=== PATIENT | female | born 2005 | race Caucasian/White ===

== ENCOUNTER 2023-03-05 14:57 | Inpatient (IN) | payer OTHER, SELFPAY ==
[2023-03-05 14:59] VITALS: BP 101/66; BP 115/70; PULSE 55; PULSE 56; RESP 18; TEMP 36.8; O2SAT 99; BMI 19.8
[2023-03-05 15:46] LABS: UPreg QC Valid YES; Urine Pregnancy NEGATIVE (NEGATIVE)
[2023-03-05 15:48] LABS: Appearance Urine Clear; Color Urine Yellow; Glucose Urine UA Negative (Negative); Leukocyte Esterase Urine Negative (Negative); Nitrite Urine Negative (Negative); Specific Gravity - Urine <= 1.005 (1.005-1.025); UMIC TRIGGER UA YES; Urine Blood Small (1+) (Negative); Urine Ketones Negative (Negative); Urine Protein Negative (Neg-Trace)
[2023-03-05 15:54] LABS: Amphetamine Screen Urine Not Detected (Not Detect); Barbiturates, Urine Not Detected (Not Detect); Benzodiazepines Screen Urine Not Detected (Not Detect); Cannabinoid Screen Urine Not Detected (Not Detect); Cocaine Screen Urine Not Detected (Not Detect); Fentanyl, urine Not Detected (Not Detect); Opiate Screen Urine Not Detected (Not Detect); Phencyclidine Screen Urine Not Detected (Not Detect)
[2023-03-05 15:56] LABS: Bacteria Urine None Seen (None Seen); Hyaline Casts Urine 0-2 /LPF (0-2); RBC Urine 0-2 /HPF (0-2); Squamous Epithelial Cell Urine 0-2 /HPF (0-2); WBC Urine 0-5 /HPF (0-5)
[2023-03-05 16:07] LABS: COVID-19 Test Negative (Negative); IDNOW Serial# 08D9AD1C
--- NOTE | 2023-03-05 16:35 | ED_ITS ---
HPI - General Adult General Chief complaint: Psychiatric Symptoms Stated complaint: sec 12 Time Seen by Provider: 03/05/23 15:51 Source: patient and EMS Mode of arrival: ambulatory Limitations: no limitations History of Present Illness HPI narrative: 17 year old female with PMH of mood disorder not compliant with medications (lithium) presents to the ED after suicide attempt on Wednesday. Patient reports she was at a libertarian at [employer] when she left and found a railroad. She reports she thought that if she touched it, it would electrocute her, so she touched it. Patient reports she has had suicidal thoughts since 2020 but has never attempted in the past and has no current plan. Patient reports she is seen regularly by a psychiatrist and a counselor and feel supported. No V/A/T hallucinations. Patient reports she was under the influence of alcohol on Wednesday but is not currently intoxicated. Denies drug or tobacco use. Denies medical complaints or SI/HI. Reports she is only anxious because she has finals this week. Related Data Home Medications Medication Instructions Recorded Confirmed lithium carbonate 450 mg 450 mg PO BID 03/05/23 03/05/23 tablet,extended release Allergies Allergy/AdvReac Type Severity Reaction Status Date / Time No Known Allergies Allergy Verified 03/05/23 15:16 Review of Systems Review of Systems: Constitutional : No Fever, No Chills ENT/Mouth : No Ear Pain, No Nasal Congestion, No sore throat Eyes: No Eye Pain, No Swelling, No Redness Cardiovascular : No Chest Pain, No SOB Respiratory : No Cough, No Sputum, No Dyspnea Gastrointestinal : No Nausea, No Vomiting, No Diarrhea, No Hematochezia, No Melena Genitourinary : No Dysuria, No Urinary Frequency, No Hematuria Musculoskeletal : No Myalgias Skin : No Skin Lesions, No rash Neuro : No Weakness, No Numbness, No Paresthesias, No Dizziness, No Headache Psych : + Anxiety, + Depression, - SI/HI Heme/Lymph: No Lymphadenopathy Endocrine : No Polyuria, No Polydipsia All other systems reviewed and are negative Yes all other systems are reviewed and are negative [facility] Past Medical History Attestation statement: The following information was validated with the patient. Source: old records reviewed, obtained from family and nursing notes reviewed Social History Social History Advance Directives: No Advance Directives Information Provided: Yes Healthcare Proxy: No Guardian: No Physical Exam ED Vital Signs: Vital Signs - 24 hr 03/05/23 14:59 Temperature 98.3 F Pulse Rate 55 Respiratory Rate 18 Blood Pressure 101/66 Pulse Oximetry 99 Oxygen Delivery Method Room Air BMI result Body Mass Index 19.8 VSS Appearance: Alert.? Oriented X3.? No acute distress.? Head: Normocephalic, atraumatic, no step-offs or deformities Eyes: Pupils equal, round and reactive to light.? CVS: Normal heart rate and rhythm.? Pulses normal.? Respiratory: No respiratory distress.? Breath sounds normal.? Abdomen: Soft and nontender.? Skin: Skin warm and dry.? Normal skin color.? Normal skin turgor.? Extremities: No lower extremity edema.? No calf ttp. 5/5 strength to bilateral upper and lower extremities Neuro: Oriented X 3.? No motor deficit.? No sensory deficit. CN 2-12 intact Course Reevaluation(s) Reevaluation #1: CBC w/ hemoconcentration likey secodary to dehydration. Chemistry unremarkable. UA clean. Salicylate acetaminophen negative. [place] WNL. Ethyl alcohol negative. COVID negative. Patient will be placed in observation to allow more time to be evaluated by care team. Patient calm and cooperative. Time: 21:18 Medical Decision Making Medical Decision Making [facility] Narrative: 170 17 year old female presents after a suicide attempt on Wednesday night. Denies medical complaints or current SI/HI. Physical exam: Alert & Oriented X 3.?No acute distress. No motor deficit.? No sensory deficit. CN 2-12 intact. Denies SI/HI. No V/A/T hallucinations Ddx: Anxiety, Depression, Personality disorder, Bipolar disorder. Unlikely medical problem. Differential Diagnosis Differential Diagnoses: The differential diagnosis associated with the presentation includes Anxiety, Depression, Personality disorder, Bipolar disorder. Unlikely medical problem. Lab Data [facility] Lab Attestation statement: I reviewed the patient's lab results. 03/05/23 18:38 03/05/23 18:38 Labs: Lab Results 03/05/23 03/05/23 03/05/23 Range/Units 15:34 15:34 15:35 WBC (4.8-10.8) X10*3/uL RBC (4.20-5.50) X10*6/uL Hgb (12.0-16.0) g/dl Hct (37.0-47.0) % MCV (80.0-98.0) fL MCH (27.0-33.0) pg MCHC (31.0-35.0) g/dl RDW (11.0-16.0) % Plt Count (160-400) X10*3/uL MPV (9.4-12.3) fL Immature Gran % (Auto) (0.0-0.4) % Neut % (Auto) (45-73) % Lymph % (Auto) (20-40) % [place] % (Auto) (2-11) % Eos % (Auto) (0-4) % Baso % (Auto) (0-2) % Lymph # (Auto) (1.2-4.9) X10*3/uL [place] # (Auto) (0.1-1.2) X10*3/uL Eos # (Auto) (0.0-0.4) X10*3/uL Baso # (Auto) (0.0-0.2) X10*3/uL Abs Immat Gran (auto) (0.00-0.03) X10*3/uL Absolute Neuts (auto) (2.0-8.3) x10*3/uL Absolute Nucleated RBC (0.0-0.012) X10*3/uL Nucleated RBC % (auto) (0.0-0.2) /100WBC Sodium (135-145) mmol/L Potassium (3.3-5.1) mmol/L Chloride (96-108) mmol/L Carbon Dioxide (22-29) mmol/L Anion Gap (12-20) BUN (9-16) mg/dL Creatinine (0.5-1.4) mg/dL Estim Creat Clear Calc Estimated GFR Random Glucose (60-115) mg/dL Calcium (8.4-10.2) mg/dL Magnesium (1.6-2.6) mg/dL Total Bilirubin (0.0-1.0) mg/dL AST (5-31) U/L ALT (0-31) U/L Alkaline Phosphatase (39-117) U/L Total Protein (6.5-8.0) g/dL Albumin (3.5-5.0) g/dL Urine Color Yellow Urine Appearance Clear Urine pH 7.0 (5.0-9.0) Ur Specific [place] <= 1.005 (1.005-1.025) Urine Protein Negative (Neg-Trace) mg/dL Urine Glucose (UA) Negative (Negative) mg/dL Urine Ketones Negative (Negative) mg/dL Urine Blood Small (1+) H (Negative) Urine Nitrite Negative (Negative) Ur Leukocyte Esterase Negative (Negative) Urine RBC 0-2 (0-2) /HPF Urine WBC 0-5 (0-5) /HPF Ur Squamous Epith Cells 0-2 (0-2) /HPF Urine Bacteria None Seen (None Seen) Hyaline Casts 0-2 (0-2) /LPF Urine Test (NEGATIVE) Salicylates (15-30) mg/dL Urine Opiates Screen Not Detected (Not Detect) Urine Fentanyl Screen Not Detected (Not Detect) Acetaminophen (<30) mcg/mL Ur Barbiturates Screen Not Detected (Not Detect) Ur Phencyclidine Scrn Not Detected (Not Detect) Ur Amphetamines Screen Not Detected (Not Detect) U Benzodiazepines Scrn Not Detected (Not Detect) [place] (0.60-1.20) mmol/L Urine Cocaine Screen Not Detected (Not Detect) U Marijuana (THC) Screen Not Detected (Not Detect) Ethyl Alcohol mg/dL COVID-19 (SAMANTHA) Negative (Negative) COVID-19 Clin Com See Note 03/05/23 03/05/23 03/05/23 Range/Units 15:35 18:38 18:38 WBC 9.1 (4.8-10.8) X10*3/uL RBC 5.25 (4.20-5.50) X10*6/uL Hgb 16.1 H (12.0-16.0) g/dl Hct 47.3 H (37.0-47.0) % MCV 90.1 (80.0-98.0) fL MCH 30.7 (27.0-33.0) pg MCHC 34.0 (31.0-35.0) g/dl RDW 12.0 (11.0-16.0) % Plt Count 236 (160-400) X10*3/uL MPV 10.6 (9.4-12.3) fL Immature Gran % (Auto) 0.3 (0.0-0.4) % Neut % (Auto) 68.5 (45-73) % Lymph % (Auto) 23.7 (20-40) % [place] % (Auto) 6.1 (2-11) % Eos % (Auto) 1.1 (0-4) % Baso % (Auto) 0.3 (0-2) % Lymph # (Auto) 2.2 (1.2-4.9) X10*3/uL [place] # (Auto) 0.6 (0.1-1.2) X10*3/uL Eos # (Auto) 0.1 (0.0-0.4) X10*3/uL Baso # (Auto) 0.0 (0.0-0.2) X10*3/uL Abs Immat Gran (auto) 0.03 (0.00-0.03) X10*3/uL Absolute Neuts (auto) 6.2 (2.0-8.3) x10*3/uL Absolute Nucleated RBC 0.000 (0.0-0.012) X10*3/uL Nucleated RBC % (auto) 0.0 (0.0-0.2) /100WBC Sodium 139 (135-145) mmol/L Potassium 4.5 (3.3-5.1) mmol/L Chloride 105 (96-108) mmol/L Carbon Dioxide 26 (22-29) mmol/L Anion Gap 13 (12-20) BUN 12 (9-16) mg/dL Creatinine 0.92 (0.5-1.4) mg/dL Estim Creat Clear Calc 91.5 Estimated GFR > 60 Random Glucose 143 H (60-115) mg/dL Calcium 10.4 H (8.4-10.2) mg/dL Magnesium 2.3 (1.6-2.6) mg/dL Total Bilirubin 0.9 (0.0-1.0) mg/dL AST 22 (5-31) U/L ALT 17 (0-31) U/L Alkaline Phosphatase 75 (39-117) U/L Total Protein 8.2 H (6.5-8.0) g/dL Albumin 5.2 H (3.5-5.0) g/dL Urine Color Urine Appearance Urine pH (5.0-9.0) Ur Specific [place] (1.005-1.025) Urine Protein (Neg-Trace) mg/dL Urine Glucose (UA) (Negative) mg/dL Urine Ketones (Negative) mg/dL Urine Blood (Negative) Urine Nitrite (Negative) Ur Leukocyte Esterase (Negative) Urine RBC (0-2) /HPF Urine WBC (0-5) /HPF Ur Squamous Epith Cells (0-2) /HPF Urine Bacteria (None Seen) Hyaline Casts (0-2) /LPF Urine Test NEGATIVE (NEGATIVE) Salicylates < 5.0 L (15-30) mg/dL Urine Opiates Screen (Not Detect) Urine Fentanyl Screen (Not Detect) Acetaminophen < 17 (<30) mcg/mL Ur Barbiturates Screen (Not Detect) Ur Phencyclidine Scrn (Not Detect) Ur Amphetamines Screen (Not Detect) U Benzodiazepines Scrn (Not Detect) [place] (0.60-1.20) mmol/L Urine Cocaine Screen (Not Detect) U Marijuana (THC) Screen (Not Detect) Ethyl Alcohol < 10 mg/dL COVID-19 (SAMANTHA) (Negative) COVID-19 Clin Com 03/05/23 Range/Units 19:41 WBC (4.8-10.8) X10*3/uL RBC (4.20-5.50) X10*6/uL Hgb (12.0-16.0) g/dl Hct (37.0-47.0) % MCV (80.0-98.0) fL MCH (27.0-33.0) pg MCHC (31.0-35.0) g/dl RDW (11.0-16.0) % Plt Count (160-400) X10*3/uL MPV (9.4-12.3) fL Immature Gran % (Auto) (0.0-0.4) % Neut % (Auto) (45-73) % Lymph % (Auto) (20-40) % [place] % (Auto) (2-11) % Eos % (Auto) (0-4) % Baso % (Auto) (0-2) % Lymph # (Auto) (1.2-4.9) X10*3/uL [place] # (Auto) (0.1-1.2) X10*3/uL Eos # (Auto) (0.0-0.4) X10*3/uL Baso # (Auto) (0.0-0.2) X10*3/uL Abs Immat Gran (auto) (0.00-0.03) X10*3/uL Absolute Neuts (auto) (2.0-8.3) x10*3/uL Absolute Nucleated RBC (0.0-0.012) X10*3/uL Nucleated RBC % (auto) (0.0-0.2) /100WBC Sodium (135-145) mmol/L Potassium (3.3-5.1) mmol/L Chloride (96-108) mmol/L Carbon Dioxide (22-29) mmol/L Anion Gap (12-20) BUN (9-16) mg/dL Creatinine (0.5-1.4) mg/dL Estim Creat Clear Calc Estimated GFR Random Glucose (60-115) mg/dL Calcium (8.4-10.2) mg/dL Magnesium (1.6-2.6) mg/dL Total Bilirubin (0.0-1.0) mg/dL AST (5-31) U/L ALT (0-31) U/L Alkaline Phosphatase (39-117) U/L Total Protein (6.5-8.0) g/dL Albumin (3.5-5.0) g/dL Urine Color Urine Appearance Urine pH (5.0-9.0) Ur Specific [place] (1.005-1.025) Urine Protein (Neg-Trace) mg/dL Urine Glucose (UA) (Negative) mg/dL Urine Ketones (Negative) mg/dL Urine Blood (Negative) Urine Nitrite (Negative) Ur Leukocyte Esterase (Negative) Urine RBC (0-2) /HPF Urine WBC (0-5) /HPF Ur Squamous Epith Cells (0-2) /HPF Urine Bacteria (None Seen) Hyaline Casts (0-2) /LPF Urine Test (NEGATIVE) Salicylates (15-30) mg/dL Urine Opiates Screen (Not Detect) Urine Fentanyl Screen (Not Detect) Acetaminophen (<30) mcg/mL Ur Barbiturates Screen (Not Detect) Ur Phencyclidine Scrn (Not Detect) Ur Amphetamines Screen (Not Detect) U Benzodiazepines Scrn (Not Detect) [place] 0.98 (0.60-1.20) mmol/L Urine Cocaine Screen (Not Detect) U Marijuana (THC) Screen (Not Detect) Ethyl Alcohol mg/dL COVID-19 (SAMANTHA) (Negative) COVID-19 Clin Com Core Measures AMI core measures followed: Yes Measure exclusions: not indicated Critical Care Time Critical Care Time Critical Care Time: No Discharge Plan Discharge Clinical Impression: Depression Patient Disposition: Still a Patient Prescriptions: No Action lithium carbonate 450 mg tablet extended release 450 mg PO BID
--- NOTE | 2023-03-05 16:46 | MHC.CARE ---
The on-call clinician for this pt at [facility] is going to be Garima and she can be reached on her personal cell phone [phone]. The [facility] would like an update and they are available for more information if it is needed. [facility] rep stated to t/w that the pt had an attmept on Wednesday of this week.
[2023-03-05 18:44] LABS: MANUAL DIFF FLAG NO
[2023-03-05 18:45] LABS: Basophils Percent Auto 0.3 % (0-2); Eosinophils Absolute Auto 0.1 X10*3/uL (0.0-0.4); Eosinophils Percent Auto 1.1 % (0-4); Hematocrit 47.3 % (37.0-47.0); Hemoglobin 16.1 g/dl (12.0-16.0); Imm Gran Abs Auto 0.03 X10*3/uL (0.00-0.03); Imm Gran Pct Auto 0.3 % (0.0-0.4); Lymphocytes Absolute Auto 2.2 X10*3/uL (1.2-4.9); Lymphocytes Percent Auto 23.7 % (20-40); Mean Corpuscular Hemoglobin 30.7 pg (27.0-33.0); Mean Corpuscular Volume 90.1 fL (80.0-98.0); Mean Platelet Volume 10.6 fL (9.4-12.3); Monocytes Absolute Auto 0.6 X10*3/uL (0.1-1.2); Monocytes Percent Auto 6.1 % (2-11); Neutrophils Absolute Auto 6.2 x10*3/uL (2.0-8.3); Neutrophils Percent Auto 68.5 % (45-73); Platelet Count 236 X10*3/uL (160-400); Red Blood Count 5.25 X10*6/uL (4.20-5.50); White Blood Count 9.1 X10*3/uL (4.8-10.8)
[2023-03-05 19:04] LABS: Anion Gap 13 (12-20)
[2023-03-05 19:05] LABS: Acetaminophen LAB < 17 mcg/mL (<30); Alanine Aminotransferase 17 U/L (0-31); Albumin Level 5.2 g/dL (3.5-5.0); Alkaline Phosphatase 75 U/L (39-117); Aspartate Amino Transferase 22 U/L (5-31); Bilirubin Total 0.9 mg/dL (0.0-1.0); Blood Urea Nitrogen 12 mg/dL (9-16); Calcium 10.4 mg/dL (8.4-10.2); Carbon Dioxide 26 mmol/L (22-29); Chloride 105 mmol/L (96-108); Creatinine Clr Calc Pharmacy 91.5; Estimated Glomerular Filt Rate > 60; Ethanol < 10 mg/dL; Glucose Random 143 mg/dL (60-115); Magnesium 2.3 mg/dL (1.6-2.6); Potassium 4.5 mmol/L (3.3-5.1); Salicylate < 5.0 mg/dL (15-30); Sodium 139 mmol/L (135-145); Total Protein 8.2 g/dL (6.5-8.0)
[2023-03-05 20:03] LABS: Lithium 0.98 mmol/L (0.60-1.20)
--- NOTE | 2023-03-05 23:37 | PC.ADMIT ---
pt is a 17 year old female who present to [facility] ED after a suicide attempt last week. pt reported feeling stressed due to finals. during admission, pt was pleasant and signed all legals. pt reported having a cough from a viral infection that didn't completely go away. pt is COVID negative. pt has been drinking water. pt reports that she wants to get back to school and finish her finals,which are on wednesday and wednesday on next week. pt wants to leave on wednesday. start treatment plan and promote safety.
[2023-03-05 23:48] VITALS: BP 118/54; PULSE 60; TEMP 36.8; O2SAT 97
[2023-03-06 08:32] VITALS: BP 102/52; PULSE 56; RESP 16; TEMP 36.9; O2SAT 99
[2023-03-06 08:38] LABS: Estimated Average Glucose 94 mg/dL; Hemoglobin A1c % 4.9 %
[2023-03-06] MEDS: Lithium Carbonate ER 450 MG TABLET.ER PO ×2 (08:46→20:15)
[2023-03-06 08:48] LABS: Alanine Aminotransferase 13 U/L (0-31); Albumin Level 4.4 g/dL (3.5-5.0); Alkaline Phosphatase 63 U/L (39-117); Anion Gap 9 (12-20); Aspartate Amino Transferase 19 U/L (5-31); Bilirubin Total 0.9 mg/dL (0.0-1.0); Blood Urea Nitrogen 13 mg/dL (9-16); Calcium 9.8 mg/dL (8.4-10.2); Carbon Dioxide 25 mmol/L (22-29); Chloride 108 mmol/L (96-108); Cholesterol 173 mg/dL; Creatinine Clr Calc Pharmacy 84.2; Estimated Glomerular Filt Rate > 60; Glucose Fasting 90 mg/dL (60-99); HDL Cholesterol 70 mg/dL; LDL Cholesterol Calculated 89 mg/dl; Potassium 4.3 mmol/L (3.3-5.1); Sodium 138 mmol/L (135-145); Total Protein 6.9 g/dL (6.5-8.0); Triglycerides 70 mg/dL
[2023-03-06 09:17] LABS: Folate 14.9 ng/mL (> or = 4.0); Thyroid Stimulating Hormone 1.33 uIU/mL (0.32-4.0); Vitamin B12 590 pg/mL (200-900)
--- NOTE | 2023-03-06 11:44 | HO.PSYADMNOT ---
HPI Date of Service: 03/06/23 Chief Complaint: SI Sources of Information: patient interviewed, chart reviewed and crisis/core team assessment reviewed HPI Subjective Notes: Conditional Voluntary Healthcare Proxy: No Medical Problems Affecting Mental Status: No Narrative: 17 year old single female, student at [employer]. This is her first psychiatric hospitalization. She carries a diagnosis of depression. Patient was referred to [facility] after she disclosed to friends she tried to get electrocuted by touching the railroad tracks. She says they had a couple of meetings at the [facility] and decided that I should come to the hospital. Patient says I was at a alliance party on Wednesday and had a panic attack because I couldn't have fun like the people at the alliance party and was uncertain about my future and I left. The school is next to the railroad track and I touched the railroads to be electrocuted. But you can't unless there is a third rail. She says she told her friends about the incident. She reports she has been stressed because of finals. She was guarded about other precipitants. She acknowledges she has been off her [place] which she was prescribed after having several failed antidepressant trials and that it was helpful. Li prescribed by [facility] psychiatrist Dr. Agrawal. Patient was focused on leaving and was tearful throughout the interview and was difficult to engage around other topics and was just repeating that she doesn't belong here and wants to leave. She has been taking her Li now. She is denying SI. Past Psychiatric History: First psychiatric hospitalization. Denies suicide attempts Therapist, Bonny Nathan in [place] since 2020. [address]. Agrawal, [facility] psychiatrist. Medical Evaluation Reviewed: Yes [facility] Family History: Bipolar disorder in father. Social History: Originally from [facility]. Substance History: Denies Trauma History: Unknown Diagnostics Vital Signs (24Hr): Vital Signs - 24 hr 03/05/23 14:59 03/05/23 23:48 03/06/23 08:32 Temperature 98.3 F 98.2 F 98.5 F Pulse Rate 55 60 56 Respiratory Rate 18 16 Blood Pressure 101/66 118/54 L 102/52 L Pulse Oximetry 99 97 99 Oxygen Delivery Method Room Air Room Air Room Air BMI result Body Mass Index 19.8 Labs 03/05/23 18:38 03/06/23 08:18 Labs: Laboratory Results - last 48 hr 03/05/23 03/05/23 03/05/23 15:34 15:34 15:35 WBC RBC Hgb Hct MCV MCH MCHC RDW Plt Count MPV Immature Gran % (Auto) Neut % (Auto) Lymph % (Auto) [place] % (Auto) Eos % (Auto) Baso % (Auto) Lymph # (Auto) [place] # (Auto) Eos # (Auto) Baso # (Auto) Abs Immat Gran (auto) Absolute Neuts (auto) Absolute Nucleated RBC Nucleated RBC % (auto) Sodium Potassium Chloride Carbon Dioxide Anion Gap BUN Creatinine Estim Creat Clear Calc Estimated GFR Random Glucose Fasting Glucose Estimat Average Glucose Hemoglobin A1c % Calcium Magnesium Total Bilirubin AST ALT Alkaline Phosphatase Total Protein Albumin Triglycerides Cholesterol LDL Cholesterol, Calc HDL Cholesterol Vitamin B12 Folate TSH Urine Color Yellow Urine Appearance Clear Urine pH 7.0 Ur Specific [place] <= 1.005 Urine Protein Negative Urine Glucose (UA) Negative Urine Ketones Negative Urine Blood Small (1+) H Urine Nitrite Negative Ur Leukocyte Esterase Negative Urine RBC 0-2 Urine WBC 0-5 Ur Squamous Epith Cells 0-2 Urine Bacteria None Seen Hyaline Casts 0-2 Urine Test Salicylates Urine Opiates Screen Not Detected Urine Fentanyl Screen Not Detected Acetaminophen Ur Barbiturates Screen Not Detected Ur Phencyclidine Scrn Not Detected Ur Amphetamines Screen Not Detected U Benzodiazepines Scrn Not Detected [place] Urine Cocaine Screen Not Detected U Marijuana (THC) Screen Not Detected Ethyl Alcohol COVID-19 (SAMANTHA) Negative COVID-19 Clin Com See Note 03/05/23 03/05/23 03/05/23 15:35 18:38 18:38 WBC 9.1 RBC 5.25 Hgb 16.1 H Hct 47.3 H MCV 90.1 MCH 30.7 MCHC 34.0 RDW 12.0 Plt Count 236 MPV 10.6 Immature Gran % (Auto) 0.3 Neut % (Auto) 68.5 Lymph % (Auto) 23.7 [place] % (Auto) 6.1 Eos % (Auto) 1.1 Baso % (Auto) 0.3 Lymph # (Auto) 2.2 [place] # (Auto) 0.6 Eos # (Auto) 0.1 Baso # (Auto) 0.0 Abs Immat Gran (auto) 0.03 Absolute Neuts (auto) 6.2 Absolute Nucleated RBC 0.000 Nucleated RBC % (auto) 0.0 Sodium 139 Potassium 4.5 Chloride 105 Carbon Dioxide 26 Anion Gap 13 BUN 12 Creatinine 0.92 Estim Creat Clear Calc 91.5 Estimated GFR > 60 Random Glucose 143 H Fasting Glucose Estimat Average Glucose Hemoglobin A1c % Calcium 10.4 H Magnesium 2.3 Total Bilirubin 0.9 AST 22 ALT 17 Alkaline Phosphatase 75 Total Protein 8.2 H Albumin 5.2 H Triglycerides Cholesterol LDL Cholesterol, Calc HDL Cholesterol Vitamin B12 Folate TSH Urine Color Urine Appearance Urine pH Ur Specific [place] Urine Protein Urine Glucose (UA) Urine Ketones Urine Blood Urine Nitrite Ur Leukocyte Esterase Urine RBC Urine WBC Ur Squamous Epith Cells Urine Bacteria Hyaline Casts Urine Test NEGATIVE Salicylates < 5.0 L Urine Opiates Screen Urine Fentanyl Screen Acetaminophen < 17 Ur Barbiturates Screen Ur Phencyclidine Scrn Ur Amphetamines Screen U Benzodiazepines Scrn [place] Urine Cocaine Screen U Marijuana (THC) Screen Ethyl Alcohol < 10 COVID-19 (SAMANTHA) COVID-19 [facility] 03/05/23 03/06/23 03/06/23 19:41 08:18 08:18 WBC RBC Hgb Hct MCV MCH MCHC RDW Plt Count MPV Immature Gran % (Auto) Neut % (Auto) Lymph % (Auto) [place] % (Auto) Eos % (Auto) Baso % (Auto) Lymph # (Auto) [place] # (Auto) Eos # (Auto) Baso # (Auto) Abs Immat Gran (auto) Absolute Neuts (auto) Absolute Nucleated RBC Nucleated RBC % (auto) Sodium 138 Potassium 4.3 Chloride 108 Carbon Dioxide 25 Anion Gap 9 L BUN 13 Creatinine 1.00 Estim Creat Clear Calc 84.2 Estimated GFR > 60 Random Glucose Fasting Glucose 90 Estimat Average Glucose 94 Hemoglobin A1c % 4.9 Calcium 9.8 Magnesium Total Bilirubin 0.9 AST 19 ALT 13 Alkaline Phosphatase 63 Total Protein 6.9 Albumin 4.4 Triglycerides 70 Cholesterol 173 LDL Cholesterol, Calc 89 HDL Cholesterol 70 Vitamin B12 590 Folate 14.9 TSH 1.33 Urine Color Urine Appearance Urine pH Ur Specific [place] Urine Protein Urine Glucose (UA) Urine Ketones Urine Blood Urine Nitrite Ur Leukocyte Esterase Urine RBC Urine WBC Ur Squamous Epith Cells Urine Bacteria Hyaline Casts Urine Test Salicylates Urine Opiates Screen Urine Fentanyl Screen Acetaminophen Ur Barbiturates Screen Ur Phencyclidine Scrn Ur Amphetamines Screen U Benzodiazepines Scrn [place] 0.98 Urine Cocaine Screen U Marijuana (THC) Screen Ethyl Alcohol COVID-19 (SAMANTHA) COVID-19 Clin Com Meds/Allergies Meds Home Medications Medication Instructions Recorded Confirmed Type lithium carbonate 450 mg 450 mg PO BID 03/05/23 03/05/23 History tablet,extended release Allergies Allergies Allergy/AdvReac Type Severity Reaction Status Date / Time No Known Allergies Allergy Verified 03/05/23 15:16 Mental Status Exam Mental Status Exam Patient Appearance: Appropriate (Hospital gown) Patient Orientation: Person, Place, Time and Situation Level of Consciousness: Awake, Alert and Follows Commands Patient Behavior: Talkative, Cooperative, Anxious and Crying Mood Description: Anxious, Labile and Nervous Affect Description: Anxious Patient Cognition Impaired: No Ability to Follow Directions: Good Speech Pattern: Perseverating, Spontaneous Speech and Pressured Memory Description: Intact Hallucinations: None Delusions: Not Present Thought Process: Intact and Goal Oriented Thought Content: positive for Intact, positive for [place] and positive for Perseveration Depressive Symptoms: Increased Anxiety, Crying Spells and Unhappiness Judgement: Fair Assessment & Plan Assessment & Plan (1) Depression: Status: Acute Code(s): F32.A - Depression, unspecified Assessment and Plan: 17 yr old [employer] student with reported history of depression who was brought to [facility] after disclosing a suicide attempt by electrocution by touching the railroad track although she wasn't successful and nothing happened after she attempted. She has been off [place]. She was focused on DC throughout the interview and difficult to engage around other topics. Plan Admit to [facility] for safety, further observation, diagnostic clarification and collaterals. CV. Discussed her rights including signing a 3 day notice. Restart Li 450 mg BID (Was on 900 mg total) Encouraged group and milieu therapy. Collaterals from school, family and treatment team. Discharge planning. Patient educated on: medication risk/benefits and therapeutic strategies Informed Consent: understands Reason for continued inpatient stay Substantial Risk for: harm to self and rapid decompensation Statement Statement: I have reviewed the history and physical and performed a pertinent examination on my patient. No changes have occurred unless specified. If the History and Physical was not performed prior to admission, the Hospitalist's service will be consulted for completing the admission physical. Time Spent With Patient Time: Total time managing care of this patient today ____ minutes.
[2023-03-06 16:55] VITALS: BP 117/77; PULSE 89; TEMP 36.6
[2023-03-07] MEDS: Lithium Carbonate ER 450 MG TABLET.ER PO ×2 (08:40→20:23)
[2023-03-07 08:41] VITALS: BP 102/60; PULSE 59; RESP 16; TEMP 36.6; O2SAT 99
--- NOTE | 2023-03-07 10:25 | HO.PSYCHPN ---
Subjective Subjective Date of Service: 03/07/23 Reason For Visit: SI Interim History: Patient seen. Discussed with team. She has been more accepting of staying after having an anxious day yesterday. Continues to take Li. She is cooperative. More engaged. She says she had some visitors yesterdsay and it went well. She is regretful of her her act and says she has no SI anymore. She maintains her act was precipitted because of her not having a clear direction in her life but is vague about it. 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 Denies relationship problems. Has been in touch with her parents she says. Medication Compliance: Yes Side effects from medications: No Attending Groups: Yes Review of Systems Acute medical concerns: No Review of Systems Review of Systems Constitutional : No Fever, No Chills ENT/Mouth : No Ear Pain, No Nasal Congestion, No sore throat Eyes: No Eye Pain, No Swelling, No Redness Cardiovascular : No Chest Pain, No SOB Respiratory : No Cough, No Sputum, No Dyspnea Gastrointestinal : No Nausea, No Vomiting, No Diarrhea, No Hematochezia, No Melena Genitourinary : No Dysuria, No Urinary Frequency, No Hematuria Musculoskeletal : No Myalgias Skin : No Skin Lesions, No rash Neuro : No Weakness, No Numbness, No Paresthesias, No Dizziness, No Headache Psych : + Anxiety, + Depression, - SI/HI Heme/Lymph: No Lymphadenopathy Endocrine : No Polyuria, No Polydipsia All other systems reviewed and are negative Yes all other systems are reviewed and are negative Mental Status Exam Mental Status Exam Patient Appearance: Appropriate (Hospital gown) Patient Orientation: Person, Place, Time and Situation Level of Consciousness: Awake, Alert and Follows Commands Patient Behavior: Talkative, Cooperative and Anxious Mood Description: Nervous Affect Description: Anxious Patient Cognition Impaired: No Ability to Follow Directions: Good Speech Pattern: Clear and Spontaneous Speech Memory Description: Intact Hallucinations: None Delusions: Not Present Thought Process: Intact and Linear Thought Content: positive for Intact and positive for Logical Depressive Symptoms: Insomnia, Crying Spells and Feelings of Guilt Judgement: Fair Diagnostics Vital Signs (24Hr): Vital Signs - 24 hr 03/06/23 16:55 03/07/23 08:41 Temperature 97.9 F 97.8 F Pulse Rate 89 59 Respiratory Rate 16 Blood Pressure 117/77 102/60 Pulse Oximetry 99 Oxygen Delivery Method Room Air BMI result Body Mass Index 19.8 Labs 03/05/23 18:38 03/06/23 08:18 Labs: Laboratory Results - last 48 hr 03/05/23 03/05/23 03/05/23 15:34 15:34 15:35 WBC RBC Hgb Hct MCV MCH MCHC RDW Plt Count MPV Immature Gran % (Auto) Neut % (Auto) Lymph % (Auto) [place] % (Auto) Eos % (Auto) Baso % (Auto) Lymph # (Auto) [place] # (Auto) Eos # (Auto) Baso # (Auto) Abs Immat Gran (auto) Absolute Neuts (auto) Absolute Nucleated RBC Nucleated RBC % (auto) Sodium Potassium Chloride Carbon Dioxide Anion Gap BUN Creatinine Estim Creat Clear Calc Estimated GFR Random Glucose Fasting Glucose Estimat Average Glucose Hemoglobin A1c % Calcium Magnesium Total Bilirubin AST ALT Alkaline Phosphatase Total Protein Albumin Triglycerides Cholesterol LDL Cholesterol, Calc HDL Cholesterol Vitamin B12 Folate TSH Urine Color Yellow Urine Appearance Clear Urine pH 7.0 Ur Specific [place] <= 1.005 Urine Protein Negative Urine Glucose (UA) Negative Urine Ketones Negative Urine Blood Small (1+) H Urine Nitrite Negative Ur Leukocyte Esterase Negative Urine RBC 0-2 Urine WBC 0-5 Ur Squamous Epith Cells 0-2 Urine Bacteria None Seen Hyaline Casts 0-2 Urine Test Salicylates Urine Opiates Screen Not Detected Urine Fentanyl Screen Not Detected Acetaminophen Ur Barbiturates Screen Not Detected Ur Phencyclidine Scrn Not Detected Ur Amphetamines Screen Not Detected U Benzodiazepines Scrn Not Detected [place] Urine Cocaine Screen Not Detected U Marijuana (THC) Screen Not Detected Ethyl Alcohol COVID-19 (SAMANTHA) Negative COVID-19 Clin Com See Note 03/05/23 03/05/23 03/05/23 15:35 18:38 18:38 WBC 9.1 RBC 5.25 Hgb 16.1 H Hct 47.3 H MCV 90.1 MCH 30.7 MCHC 34.0 RDW 12.0 Plt Count 236 MPV 10.6 Immature Gran % (Auto) 0.3 Neut % (Auto) 68.5 Lymph % (Auto) 23.7 [place] % (Auto) 6.1 Eos % (Auto) 1.1 Baso % (Auto) 0.3 Lymph # (Auto) 2.2 [place] # (Auto) 0.6 Eos # (Auto) 0.1 Baso # (Auto) 0.0 Abs Immat Gran (auto) 0.03 Absolute Neuts (auto) 6.2 Absolute Nucleated RBC 0.000 Nucleated RBC % (auto) 0.0 Sodium 139 Potassium 4.5 Chloride 105 Carbon Dioxide 26 Anion Gap 13 BUN 12 Creatinine 0.92 Estim Creat Clear Calc 91.5 Estimated GFR > 60 Random Glucose 143 H Fasting Glucose Estimat Average Glucose Hemoglobin A1c % Calcium 10.4 H Magnesium 2.3 Total Bilirubin 0.9 AST 22 ALT 17 Alkaline Phosphatase 75 Total Protein 8.2 H Albumin 5.2 H Triglycerides Cholesterol LDL Cholesterol, Calc HDL Cholesterol Vitamin B12 Folate TSH Urine Color Urine Appearance Urine pH Ur Specific [place] Urine Protein Urine Glucose (UA) Urine Ketones Urine Blood Urine Nitrite Ur Leukocyte Esterase Urine RBC Urine WBC Ur Squamous Epith Cells Urine Bacteria Hyaline Casts Urine Test NEGATIVE Salicylates < 5.0 L Urine Opiates Screen Urine Fentanyl Screen Acetaminophen < 17 Ur Barbiturates Screen Ur Phencyclidine Scrn Ur Amphetamines Screen U Benzodiazepines Scrn [place] Urine Cocaine Screen U Marijuana (THC) Screen Ethyl Alcohol < 10 COVID-19 (SAMANTHA) COVID-19 Clin Com 03/05/23 03/06/23 03/06/23 19:41 08:18 08:18 WBC RBC Hgb Hct MCV MCH MCHC RDW Plt Count MPV Immature Gran % (Auto) Neut % (Auto) Lymph % (Auto) [place] % (Auto) Eos % (Auto) Baso % (Auto) Lymph # (Auto) [place] # (Auto) Eos # (Auto) Baso # (Auto) Abs Immat Gran (auto) Absolute Neuts (auto) Absolute Nucleated RBC Nucleated RBC % (auto) Sodium 138 Potassium 4.3 Chloride 108 Carbon Dioxide 25 Anion Gap 9 L BUN 13 Creatinine 1.00 Estim Creat Clear Calc 84.2 Estimated GFR > 60 Random Glucose Fasting Glucose 90 Estimat Average Glucose 94 Hemoglobin A1c % 4.9 Calcium 9.8 Magnesium Total Bilirubin 0.9 AST 19 ALT 13 Alkaline Phosphatase 63 Total Protein 6.9 Albumin 4.4 Triglycerides 70 Cholesterol 173 LDL Cholesterol, Calc 89 HDL Cholesterol 70 Vitamin B12 590 Folate 14.9 TSH 1.33 Urine Color Urine Appearance Urine pH Ur Specific [place] Urine Protein Urine Glucose (UA) Urine Ketones Urine Blood Urine Nitrite Ur Leukocyte Esterase Urine RBC Urine WBC Ur Squamous Epith Cells Urine Bacteria Hyaline Casts Urine Test Salicylates Urine Opiates Screen Urine Fentanyl Screen Acetaminophen Ur Barbiturates Screen Ur Phencyclidine Scrn Ur Amphetamines Screen U Benzodiazepines Scrn [place] 0.98 Urine Cocaine Screen U Marijuana (THC) Screen Ethyl Alcohol COVID-19 (SAMANTHA) COVID-19 Clin Com Medications Medications Current Medications Acetaminophen (Acetaminophen 325 Mg Tablet) 650 mg PO Q6H PRN PRN Reason: Headache/Pain Mild Scale (1-3) Al Hydroxide/Mg Hydroxide (Magnesium Hydrox/Alum Hydrox 30 Ml Oral.Susp) 30 ml PO Q6H PRN PRN Reason: Heartburn/Nausea Hydroxyzine HCl (Hydroxyzine Hcl 25 Mg Tablet) 25 mg PO Q6H PRN PRN Reason: Anxiety [place] Carbonate ([place] Carbonate Er 450 Mg Tablet.Er) 450 mg PO BID JONATHON Last Admin: 03/07/23 08:40 Dose: 450 mg Magnesium Hydroxide (Milk Of Magnesia 30 Ml Oral.Susp) 30 ml PO DAILY PRN PRN Reason: Constipation Trazodone HCl (Trazodone Hcl 50 Mg Tablet) 50 mg PO BEDTIME MRX1 PRN PRN Reason: Insomnia Allergies Allergies Allergy/AdvReac Type Severity Reaction Status Date / Time No Known Allergies Allergy Verified 03/05/23 15:16 Assessment & Plan Assessment & Plan (1) Depression: Status: Acute Code(s): F32.A - Depression, unspecified Assessment and Plan: 17 yr old [employer] with reported history of depression who was brought to [facility] after disclosing a suicide attempt by electrocution by touching the railroad track although she wasn't successful and nothing happened after she attempted. She has been off [place]. She was focused on DC throughout the interview and difficult to engage around other topics. Plan Admit to [facility] for safety, further observation, diagnostic clarification and collaterals. CV. Discussed her rights including signing a 3 day notice. Restart Li 450 mg BID (Was on 900 mg total) Encouraged group and milieu therapy. Collaterals from school, family and treatment team. Discharge planning. 03/07: Continue treatment plan. Coordination with school and family re safe DC plan. Reason for continued inpatient stay Substantial Risk for: harm to self and rapid decompensation Time Spent With Patient Time: Total time managing care of this patient today ____ minutes.
[2023-03-07 15:42] VITALS: BP 101/49; PULSE 52; TEMP 36.1
[2023-03-08] MEDS: Lithium Carbonate ER 450 MG TABLET.ER PO ×2 (08:39→18:04)
[2023-03-08 08:41] VITALS: BP 92/52; PULSE 51; RESP 16; TEMP 36.6; O2SAT 99
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
[2023-03-08 15:36] VITALS: BP 96/49; PULSE 55
[2023-03-09 06:00] VITALS: BP 124/68; PULSE 68; RESP 16; TEMP 36.8
[2023-03-09] MEDS: Lithium Carbonate ER 450 MG TABLET.ER PO ×2 (08:23→20:19)
--- NOTE | 2023-03-09 09:58 | HO.PSYCHPN ---
Subjective Subjective Date of Service: 03/09/23 Reason For Visit: SI Subjective Notes: Conditional Voluntary and 3 Day (03/10/23) Healthcare Proxy: No Guardianship: No Medical Problems Affecting Mental Status: No Interim History: Pt currently on a three day notice of intent. Discussed care with Dr. Nathan [phone]. Dr. Nathan follows pt closely. Review of admission thus far and review of Dr. Agrawal's recommendations. Dr. Nathan will give some thought to appropriate psychiatry referral and suggests [facility] for [facility] or [facility]. There are also some intense DBT courses in the [facility] area pt could attend. Meeting with pt, parents, Dr. Nathan by phone and Damir MARTIN to plan transition back to community. [facility] team gave recommendations and will give a final authorization regarding a return to campus when meeting was completed. Pt is anxious to leave. This admission has been difficult-new exposure to levels of illness she has not seen. Pt expressed her ideas regarding staff, treatment, and her observations of psychiatric care. Redirected toward creation of a safety plan to assist her in transition from hospital to school to terminate for the semester and return home to family and start her next level of treatment. Pt wanting to return to campus until 03/14 when parents will bring her home for the summer. Pt wanting some time with friends before the semester ends. All agree this is a priority, discussion of how to complete this with support and safety. Pt was offered to take her last final exam via remote at home which she will consider. Discussed maintaining her medication compliance and the importance of this. Discussed transition to a new provider/[facility] will offer medicine assist until she enters [facility] and will connect with PCP as well for labs and updates. Discussed increasing awareness of precipitants to admission and her willingness to reach out for help as needed. Pt stressed the importance of returning to normalcy after her hospitalization and having the opportunity to finish her semester with peers. The afternoon was used for family to meet with [facility], referrals to be made to [facility] programs and for family to critique certain programs in their area to offer team guidance for referrals they believe to be appropriate. Met with pt to review the amalgamation of a plan for discharge which includes discharge 03/10 with family, referral to [facility] who will contact pt for intake appt. Pt per [facility] administration pt will not be allowed to stay overnight on campus-she will need to stay with a parent off campus, may access campus and her room as needed to pack and may see peers at her discretion (family is talking with the [facility] about these parameters). Pt will have a counseling appt their team on 03/10 2:30pm (Eileen) and 03/12 1:30pm (Hany or Garima). Pt will meet with Dr. Nathan on 03/11 11am. Family will be checking in with her daily as well. [facility] will close the dorms on 03/13. Medications will be sent to [facility] and [facility], [address] [place] [address], . Information will be sent to PCP Jasmin Coppola [address] [facility] [address] [address] . Family to assess pt going to the [employer] in their area. Medication Compliance: Yes Side effects from medications: No Attending Groups: Yes Review of Systems Acute medical concerns: No Medical Review of Systems: unchanged Mental Status Exam Mental Status Exam Patient Appearance: Appropriate Patient Orientation: Person, Place, Time and Situation Level of Consciousness: Alert Patient Behavior: Talkative and Good Eye Contact Mood Description: Appropriate, Anxious and Apprehensive Affect Description: Appropriate, Anxious and Apprehensive Patient Cognition Impaired: No Ability to Follow Directions: Good Speech Pattern: Spontaneous Speech Memory Description: Intact Hallucinations: None Delusions: Not Present Thought Process: Intact and Goal Oriented Thought Content: positive for Intact and positive for Goal Oriented Depressive Symptoms: Increased Anxiety Abnormal Motor Activity Signs and Symptoms: Restlessness Judgement: Good Diagnostics Vital Signs (24Hr): Vital Signs - 24 hr 03/08/23 15:36 Pulse Rate 55 Blood Pressure 96/49 L BMI result Body Mass Index 19.8 Labs 03/05/23 18:38 03/06/23 08:18 Medications Medications Current Medications Acetaminophen (Acetaminophen 325 Mg Tablet) 650 mg PO Q6H PRN PRN Reason: Headache/Pain Mild Scale (1-3) Al Hydroxide/Mg Hydroxide (Magnesium Hydrox/Alum Hydrox 30 Ml Oral.Susp) 30 ml PO Q6H PRN PRN Reason: Heartburn/Nausea Hydroxyzine HCl (Hydroxyzine Hcl 25 Mg Tablet) 25 mg PO Q6H PRN PRN Reason: Anxiety [place] Carbonate ([place] Carbonate Er 450 Mg Tablet.Er) 450 mg PO BID JONATHON Last Admin: 03/09/23 08:23 Dose: 450 mg Magnesium Hydroxide (Milk Of Magnesia 30 Ml Oral.Susp) 30 ml PO DAILY PRN PRN Reason: Constipation Trazodone HCl (Trazodone Hcl 50 Mg Tablet) 50 mg PO BEDTIME MRX1 PRN PRN Reason: Insomnia Allergies Allergies Allergy/AdvReac Type Severity Reaction Status Date / Time No Known Allergies Allergy Verified 03/05/23 15:16 Assessment & Plan Assessment & Plan (1) Depression: Status: Acute Code(s): F32.A - Depression, unspecified Assessment and Plan: 17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 She has been off [place]. She was focused on DC throughout the interview and difficult to engage around other topics. Plan Admit to [facility] for safety, further observation, diagnostic clarification and collaterals. CV. Discussed her rights including signing a 3 day notice. Restart Li 450 mg BID (Was on 900 mg total) Encouraged group and milieu therapy. Collaterals from school, family and treatment team. Discharge planning. 03/07: Continue treatment plan. Coordination with school and family re safe DC plan. 03/08/23: Three day notice to 03/10/23. Discussion with [facility], Dr. Agrawal, Dr. Nathan, Family Will offer recommendations based on input, presentation. Discharge 03/10 Will recommend pt return home with mother, that mother supervise [place] compliance Referral for out patient psychiatry- Dr. Agrawal to retire this month-pt has not been attending appointments Referral for PHP in her area-will discuss with Dr. Nathan 03/09/23: Discharge 03/10 with referrals Patient educated on: therapeutic strategies Guardian/Caregiver educated on: therapeutic strategies Informed Consent: understands Reason for continued inpatient stay Substantial Risk for: stable for discharge Time Spent With Patient Time: Total time managing care of this patient today ____ minutes.
[2023-03-09 17:06] VITALS: BP 110/61; PULSE 54; RESP 16; TEMP 36.1; O2SAT 99
[2023-03-10] MEDS: Lithium Carbonate ER 450 MG TABLET.ER PO (08:05)
[2023-03-10 08:08] VITALS: BP 110/60; PULSE 65; RESP 14; TEMP 36.3; O2SAT 100
[2023-03-10 08:46] LABS: Lithium 0.64 mmol/L (0.60-1.20)
[2023-03-10 08:59] LABS: Anion Gap 9 (12-20); Blood Urea Nitrogen 12 mg/dL (9-16); Calcium 9.5 mg/dL (8.4-10.2); Carbon Dioxide 28 mmol/L (22-29); Chloride 107 mmol/L (96-108); Creatinine Clr Calc Pharmacy 97.9; Estimated Glomerular Filt Rate > 60; Glucose Random 88 mg/dL (60-115); Potassium 4.2 mmol/L (3.3-5.1); Sodium 140 mmol/L (135-145)
[2023-03-10 09:20] LABS: Thyroid Stimulating Hormone 1.45 uIU/mL (0.32-4.0)
--- NOTE | 2023-03-10 11:51 | P.EN_ITS ---
Event Note Date of Service: 03/10/23 Event Note: Call from Eileen of [employer] to discuss discrepencies in pt's plan to return to campus. Eileen has reviewed Student Readiness to Return forms filled out by this marketing writer and discussed her impression that it was ordered pt cannot return to campus without a parent being with her at all times. Discussed tw inability to make policy for the college and that we will support that decision if the [facility] decides this will be their plan in moving forward with Karina and her care, however, we cannot control this and it seems that parents per their interaction with the college yesterday were in disagreement as well. Eileen was informed we are available to the college, Karina and family as needed moving forward. Time Spent With Patient Time: Total time managing care of this patient today ____ minutes.
--- NOTE | 2023-03-10 11:57 | P.DS_ITS ---
DS: Providers Provider Date of Service: 03/10/23 Date of admission: 03/05/23 22:07 Date of discharge: 03/10/23 Primary care physician: Unknown Physician Admitting clinician: Garcia Meade Attending physician on admission: Garcia Meade Attending physician on discharge: Randy Witt Discharging clinician: Martha Hdez DS: Diagnosis Discharge Diagnosis (1) Bipolar II disorder: Status: Acute (2) Borderline personality disorder: Status: Acute DS: Medications Discharge Medications Home Medications: Previous Rx's Medication Instructions Recorded lithium carbonate 450 mg 450 mg PO BID #14 tabs 03/09/23 tablet,extended release lithium carbonate 450 mg 450 mg PO BID #60 tabs 03/09/23 tablet,extended release Mental Status Exam Mental Status Exam Patient Appearance: Appropriate Patient Orientation: Person, Place, Time and Situation Level of Consciousness: Alert Patient Behavior: Talkative and Good Eye Contact Mood Description: Appropriate and Apprehensive Affect Description: Appropriate and Apprehensive Patient Cognition Impaired: No Ability to Follow Directions: Good Speech Pattern: Spontaneous Speech Memory Description: Intact Hallucinations: None Delusions: Not Present Thought Process: Intact and Goal Oriented Thought Content: positive for Intact and positive for Goal Oriented Depressive Symptoms: Increased Anxiety Abnormal Motor Activity Signs and Symptoms: Restlessness Judgement: Good Data Data Completed and Pending Completed studies during hospitalization [Text1]: 03/05/23 03/05/23 03/05/23 15:34 15:34 15:35 WBC RBC Hgb Hct MCV MCH MCHC RDW Plt Count MPV Immature Gran % (Auto) Neut % (Auto) Lymph % (Auto) [place] % (Auto) Eos % (Auto) Baso % (Auto) Lymph # (Auto) [place] # (Auto) Eos # (Auto) Baso # (Auto) Abs Immat Gran (auto) Absolute Neuts (auto) Absolute Nucleated RBC Nucleated RBC % (auto) Sodium Potassium Chloride Carbon Dioxide Anion Gap BUN Creatinine Estim Creat Clear Calc Estimated GFR Random Glucose Fasting Glucose Estimat Average Glucose Hemoglobin A1c % Calcium Magnesium Total Bilirubin AST ALT Alkaline Phosphatase Total Protein Albumin Triglycerides Cholesterol LDL Cholesterol, Calc HDL Cholesterol Vitamin B12 Folate TSH Urine Color Yellow Urine Appearance Clear Urine pH 7.0 Ur Specific [place] <= 1.005 Urine Protein Negative Urine Glucose (UA) Negative Urine Ketones Negative Urine Blood Small (1+) H Urine Nitrite Negative Ur Leukocyte Esterase Negative Urine RBC 0-2 Urine WBC 0-5 Ur Squamous Epith Cells 0-2 Urine Bacteria None Seen Hyaline Casts 0-2 Urine Test Salicylates Urine Opiates Screen Not Detected Urine Fentanyl Screen Not Detected Acetaminophen Ur Barbiturates Screen Not Detected Ur Phencyclidine Scrn Not Detected Ur Amphetamines Screen Not Detected U Benzodiazepines Scrn Not Detected [place] Urine Cocaine Screen Not Detected U Marijuana (THC) Screen Not Detected Ethyl Alcohol COVID-19 (SAMANTHA) Negative COVID-19 Clin Com See Note 03/05/23 03/05/23 03/05/23 15:35 18:38 18:38 WBC 9.1 RBC 5.25 Hgb 16.1 H Hct 47.3 H MCV 90.1 MCH 30.7 MCHC 34.0 RDW 12.0 Plt Count 236 MPV 10.6 Immature Gran % (Auto) 0.3 Neut % (Auto) 68.5 Lymph % (Auto) 23.7 [place] % (Auto) 6.1 Eos % (Auto) 1.1 Baso % (Auto) 0.3 Lymph # (Auto) 2.2 [place] # (Auto) 0.6 Eos # (Auto) 0.1 Baso # (Auto) 0.0 Abs Immat Gran (auto) 0.03 Absolute Neuts (auto) 6.2 Absolute Nucleated RBC 0.000 Nucleated RBC % (auto) 0.0 Sodium 139 Potassium 4.5 Chloride 105 Carbon Dioxide 26 Anion Gap 13 BUN 12 Creatinine 0.92 Estim Creat Clear Calc 91.5 Estimated GFR > 60 Random Glucose 143 H Fasting Glucose Estimat Average Glucose Hemoglobin A1c % Calcium 10.4 H Magnesium 2.3 Total Bilirubin 0.9 AST 22 ALT 17 Alkaline Phosphatase 75 Total Protein 8.2 H Albumin 5.2 H Triglycerides Cholesterol LDL Cholesterol, Calc HDL Cholesterol Vitamin B12 Folate TSH Urine Color Urine Appearance Urine pH Ur Specific [place] Urine Protein Urine Glucose (UA) Urine Ketones Urine Blood Urine Nitrite Ur Leukocyte Esterase Urine RBC Urine WBC Ur Squamous Epith Cells Urine Bacteria Hyaline Casts Urine Test NEGATIVE Salicylates < 5.0 L Urine Opiates Screen Urine Fentanyl Screen Acetaminophen < 17 Ur Barbiturates Screen Ur Phencyclidine Scrn Ur Amphetamines Screen U Benzodiazepines Scrn [place] Urine Cocaine Screen U Marijuana (THC) Screen Ethyl Alcohol < 10 COVID-19 (SAMANTHA) COVID-19 Clin Com 03/05/23 03/06/23 03/06/23 19:41 08:18 08:18 WBC RBC Hgb Hct MCV MCH MCHC RDW Plt Count MPV Immature Gran % (Auto) Neut % (Auto) Lymph % (Auto) [place] % (Auto) Eos % (Auto) Baso % (Auto) Lymph # (Auto) [place] # (Auto) Eos # (Auto) Baso # (Auto) Abs Immat Gran (auto) Absolute Neuts (auto) Absolute Nucleated RBC Nucleated RBC % (auto) Sodium 138 Potassium 4.3 Chloride 108 Carbon Dioxide 25 Anion Gap 9 L BUN 13 Creatinine 1.00 Estim Creat Clear Calc 84.2 Estimated GFR > 60 Random Glucose Fasting Glucose 90 Estimat Average Glucose 94 Hemoglobin A1c % 4.9 Calcium 9.8 Magnesium Total Bilirubin 0.9 AST 19 ALT 13 Alkaline Phosphatase 63 Total Protein 6.9 Albumin 4.4 Triglycerides 70 Cholesterol 173 LDL Cholesterol, Calc 89 HDL Cholesterol 70 Vitamin B12 590 Folate 14.9 TSH 1.33 Urine Color Urine Appearance Urine pH Ur Specific [place] Urine Protein Urine Glucose (UA) Urine Ketones Urine Blood Urine Nitrite Ur Leukocyte Esterase Urine RBC Urine WBC Ur Squamous Epith Cells Urine Bacteria Hyaline Casts Urine Test Salicylates Urine Opiates Screen Urine Fentanyl Screen Acetaminophen Ur Barbiturates Screen Ur Phencyclidine Scrn Ur Amphetamines Screen U Benzodiazepines Scrn [place] 0.98 Urine Cocaine Screen U Marijuana (THC) Screen Ethyl Alcohol COVID-19 (SAMANTHA) COVID-19 Clin Com 03/10/23 03/10/23 08:06 08:06 WBC RBC Hgb Hct MCV MCH MCHC RDW Plt Count MPV Immature Gran % (Auto) Neut % (Auto) Lymph % (Auto) [place] % (Auto) Eos % (Auto) Baso % (Auto) Lymph # (Auto) [place] # (Auto) Eos # (Auto) Baso # (Auto) Abs Immat Gran (auto) Absolute Neuts (auto) Absolute Nucleated RBC Nucleated RBC % (auto) Sodium 140 Potassium 4.2 Chloride 107 Carbon Dioxide 28 Anion Gap 9 L BUN 12 Creatinine 0.86 Estim Creat Clear Calc 97.9 Estimated GFR > 60 Random Glucose 88 Fasting Glucose Estimat Average Glucose Hemoglobin A1c % Calcium 9.5 Magnesium Total Bilirubin AST ALT Alkaline Phosphatase Total Protein Albumin Triglycerides Cholesterol LDL Cholesterol, Calc HDL Cholesterol Vitamin B12 Folate TSH 1.45 Urine Color Urine Appearance Urine pH Ur Specific [place] Urine Protein Urine Glucose (UA) Urine Ketones Urine Blood Urine Nitrite Ur Leukocyte Esterase Urine RBC Urine WBC Ur Squamous Epith Cells Urine Bacteria Hyaline Casts Urine Test Salicylates Urine Opiates Screen Urine Fentanyl Screen Acetaminophen Ur Barbiturates Screen Ur Phencyclidine Scrn Ur Amphetamines Screen U Benzodiazepines Scrn [place] 0.64 Urine Cocaine Screen U Marijuana (THC) Screen Ethyl Alcohol COVID-19 (SAMANTHA) COVID-19 Clin Com DS: Summary Hospital Course Hospital Course: 17 yo female, history of bipolar disorder II and borderline personality disorder, who is a math and psychology major from [employer] to ER via Section XII on 03/05/[address] Agrawal, her out patient psychiatrist, s/p reported intoxication with suicide attempt at a green party on 03/02/23, where pt attempted to electrocute herself by touching the third rail of a railroad track. Pt has a history of taking [place] with positive benefit, however, had reportedly been noncompliant. [place] Level on admit 0.98 which is most likely not a reflection of level but of dosing and blood draw at times which were not conducive to accuracy. Pt was evaluated and admitted to adult ychiatry. She signed a three day notice of intent to discharge on admission. [place] ER 450 mg bid was restarted. Pt reported suicidal ideation beginning in 2020 with no history of attempts or current plan or intent. She believes her actions of 03/02 were related to intoxication, anxiety about feeling uncertain about her future, final exams. She reported having regular therapy and psychiatry in place, denied and did not exhibit any symptoms of psychosis, denied substance use. She reported a family history of PTSD, Bipolar Disorder, Schizophrenia, Borderline Personality Disorder and suicide of a paternal uncle. Pt did well in hospital, however described it as a corrective experience and feeling regret that she had made actions to harm herself. She spoke a few times of feeling she was not ill as her peers were and did not belong in hospital. She spoke of the stress of not having a clear direction in life, not knowing what she was doing this summer (identified possibly working in the city and wanting to work on my album ), and stress of not being able to be with peers for the end of semester. This seemed important as she reported initially having significant difficulty with relationship dynamics when she began college, however she has developed a good group of supportive friends who are important to her and enjoying being on teams. Self harming thoughts began with difficult relationship dynamics in college and she reports she has worked diligently on these to improve them, thus the importance of being with peers as the end of the semester presents. She did focus her attention on peers and offered feedback on empathy and how team could improve their performance which was somewhat distractive from her personal work. The team attempted to offer support, realizing her anxiety with this initial experience of in patient care. Pt's out patient team was contacted and very involved in her care. Dr. Agrawal reported pt 's history of bipolar II disorder and borderline personal ity disorder and when decompensated pt exhibits conduct issues, aggression, poor judgment, and interpersonal relationship difficulties. Pursuit of Section VII/VIII was discussed. Family, Dr. Agrawal and Dr. Nathan all believe this is not needed at this time for pt. Dr. Nathan, pt's therapist was involved and did attend pt's family meeting. Both Dr. Nathan and Dr. Agrawal gave input as to further treatment which was initiated. Parents were very supportive and strong advocates for pt in hospital and with [facility]. Pt discharges today to return to college to complete her last 4 days of semester. Her final exam will be arranged via remote. [facility] will decide if she can be on campus without a parent at this time. Referrals have been made for partial hospital and intensive out patient DBT programs. Dr. Nathan will make recommendations for psychiatry as Dr. Agrawal is about to retire. Pt will have therapy appointments with [facility] counseling team on 03/10 and 03/12. Pt will meet with Dr. Nathan on 03/11. Parents are available to pt as well during this time. Medications have been sent to her pharmacies and will be maintained until she is secure in her out patient programs. Pt has asked for team and family trust and support in allowing her to return to her life and planning which is being attempted with support. Pt is able to contract for safety and discuss reaching out for assistance should this change. Time spent discussing smoking cessation with patient: 3 to 10 minutes Status at Discharge Functional status at discharge: independent ambulation Overall status at discharge: patient is progressing back to baseline Time Spent with Patient Time attestation: Total time managing care of this patient today ____ minutes. Time spent: Greater than 30 minutes Discharge Plan Discharge Anticipated Discharge Date/Time: 03/10/23 10:30 Patient Disposition: Home, Self-Care Discharge Diagnosis: Bipolar Disorder, Depressed Referrals: [facility] Partial Hospitalization Program (PHP) [Other] - 1 Week (Referral for Partial Hospitalization Program Program will follow-up with patient after discharge.) [facility] Counseling: Eileen Sanatcruz [Other] - 03/10/23 2:30 pm (Check in with [facility] for safety ) [facility] Center: Hany Farmer or Garima [Other] - 03/12/23 1:30 pm (Check in with [facility] for safety ) Valeriano Devine [Other] - 03/11/23 11:00 am (Follow-up discharge appointment with outpatient therapist) [facility]: Fredy Lacey [Other] - 1 Week (Interested participants should contact our intake team to schedule an intake assessment by emailing [email or web address] or calling , Option 1) Clinical and Support Options (Crisis) [Other] - 1 Week (Crisis Hotline Information Patient should call crisis services if feeling unsafe in the community.) Physician,Collin J [Primary Care Provider] - (PT. STATES SHE PERFERS HER MOM MAKE AN APPOINTMENT FOR HER. Information faxed to PCP Jasmin Coppola in [place], [place]) Discharge Medications: New lithium carbonate 450 mg tablet extended release 450 mg PO BID Qty: 60 0RF Continued lithium carbonate 450 mg tablet extended release 450 mg PO BID Qty: 14 0RF Discharge Orders: Discharge Order (Routine); Ordered 03/10/23 Ordered By: Martha Hdez Diet: Advance to usual diet Activity on Discharge: As tolerated Stand Alone Forms: Patient Portal Discharge page, Community Support Care Plan Goals: Mood and Behavioral Stabilization Health Concerns: Mood and Behavioral Stabilization Plan of Treatment: Attend scheduled appointments and follow your out patient plan of care Take medications as directed Assessment: Pt was interviewed prior to discharge and found to be fully oriented and without SI/HI. Pt has insight and demonstrates good judgment in terms of wanting to pursue treatment. Pt is not in imminent risk of harm to self or others and has a safety plan that includes presenting to the closest ER or calling 911 if feeling unsafe Pt has been observed by nursing and unit staff throughout admission. Pt has not engaged in any behaviors that suggest dangerousness to self or others and has demonstrated appropriate behaviors and impulse control. Discharge Date/Time: 03/10/23 11:06
== END 2023-03-10 11:06 | disposition home or self-care (01) | DRG 885 ==
LOC: HO.ED 21:19 → HO.PM5 22:14
PROVIDERS: Emergency Medicine; Physician Assistant; Admitting Provider Social Worker; Emergency Provider Internal Medicine; Visit Provider Clinical Nurse Specialist Psychiatric/Mental Health, Adult
DX: F31.81 Bipolar II disorder (principal); F60.3 Borderline personality disorder; Z20.822 Contact with and (suspected) exposure to COVID-19; Z91.51 Personal history of suicidal behavior
CPT/HCPCS: 36415; 80048; 80053; 80061; 80143; 80178; 80179; 80307; 81001; 81025; 82607; 82746; 83036; 83735; 84443; 85025; 87635; 99285; S9485